=== PATIENT | male | born 1990 | race Asian ===

== ENCOUNTER 2016-10-13 21:00 | Emergency (ER) | payer OTHER ==
[~2016-10-13] VITALS: Ht 172.7 cm; Wt 104.5 kg
[~2016-10-13 21:00] MED LIST: ZANTAC150 MG PO; ZOFRAN 4MG T4 MG/TAB PO; ZOFRAN ODT8 MG PO
[2016-10-13 21:02] VITALS: BP 156/96; TEMP 97
[2016-10-13 23:09] VITALS: PULSE 81
== END 2016-10-13 23:10 | disposition home or self-care (01) ==
LOC: COL.ER 21:00
DX: S61.213A Laceration without foreign body of left middle finger without damage to nail, initial encounter (principal); W26.0XXA Contact with knife, initial encounter; Y92.009 Unspecified place in unspecified non-institutional (private) residence as the place of occurrence of the external cause

== ENCOUNTER → 2020-07-03 | Outpatient (CLI) | payer OTHER | LOC: COL.RAD 11:55 | DX: K76.0 Fatty (change of) liver, not elsewhere classified (principal); D72.829 Elevated white blood cell count, unspecified | CPT/HCPCS: Q9967 ==